=== PATIENT | male | born 1990 | race African-American/Black ===

== ENCOUNTER 2020-11-10 17:59 | Observation (INO) ==
[2020-11-10] MEDS ORDERED: ONDANSETRON 4 MG/2 ML VIAL IV STA (20:08)
[2020-11-10] MEDS ORDERED: KETOROLAC 30 MG/1 ML VIAL IV STA (20:08)
[2020-11-10] MEDS ORDERED: PANTOPRAZOLE 40 MG VIAL IV STA (20:08)
[2020-11-10] MEDS ORDERED: SODIUM CHLORIDE 0.9% 1,000 ML IV STA (20:08)
[2020-11-10 20:54] LABS: Basophils % 0.2 % (0.0-0.8); Eosinophils # 0.1 10*3/uL (0.0-0.87); Eosinophils % 0.8 % (0.00-10.9); Hematocrit 43.5 VOL% (42.0-52.0); Hemoglobin 13.7 GM/DL (14.0-18.0); Immature Granulocytes % 0.3 %; Immature Granulocytes Absolute 0.02 #; Lymphocytes # 1.1 10*3/uL (1.4-4.0); Lymphocytes % 16.1 % (21.2-54.2); Mean Corpuscular HGB Conc 31.5 GM/DL (32-36); Mean Corpuscular Volume 81.2 FL (87-102); Mean Platelet Volume 10.4 FL (9.6-12.0); Neutrophils % 75.6 % (38.7-73.9); Platelet Count 275 T/CUMM (130-400); Red Blood Count 5.36 MC/CUMM (3.8-5.5); Red Cell Distribution Width 13.2 % (9.3-17.3); White Blood Count 6.6 T/CUMM (4-12)
[2020-11-10 20:55] LABS: Bilirubin,Urine Negative (Negative); Blood, Urine Negative (Negative); Glucose,Urine (UA) Negative (Negative); Ketones,Urine Negative (Negative); Mucus,Urine Occasional /LPF (Occasional); Nitrite,Urine Negative (Negative); Protein,Urine 30 MG/DL; RBC,Urine 3 /HPF (0-4); Squamous Epithelial Cell,Urine Occasional /HPF (0-10); Urine Appearance CLEAR (Clear); Urine Color Yellow (Yellow); Urine Specific Gravity 1.027 (1.001-1.035); Urine Urobilinogen < 2.0 EU/DL (0.2-1.0); WBC,Urine 1 /HPF (0-6)
[2020-11-10 21:11] LABS: Bilirubin,Total 0.9 MG/DL (0.2-1.0); Calcium 9.5 MG/DL (8.5-10.1); Osmolality,Calculated 265.2 MOS/KG (273-304); Potassium 3.8 MMOL/L (3.5-5.1); Total Protein 8.2 G/DL (6.4-8.3)
[2020-11-11] MEDS ORDERED: HYDROmorphone 2 MG/1 ML VIAL IV PRN ×3 (02:31→14:43)
[2020-11-11] MEDS ORDERED: ONDANSETRON 4 MG/2 ML VIAL IV PRN ×2 (02:31→14:43)
[2020-11-11] MEDS ORDERED: ACETAMINOPHEN 325 MG TABLET PO PRN (02:31)
[2020-11-11] MEDS: SODIUM CHLORIDE 0.9% 1,000 ML IV SCH (03:56)
[2020-11-11 06:27] LABS: Basophils # 0.1 10*3/uL (0.0-0.2); Basophils % 0.8 % (0.0-0.8); Eosinophils # 0.1 10*3/uL (0.0-0.87); Eosinophils % 2.2 % (0.00-10.9); Hematocrit 40.3 VOL% (42.0-52.0); Hemoglobin 12.8 GM/DL (14.0-18.0); Immature Granulocytes % 0.2 %; Immature Granulocytes Absolute 0.01 #; Lymphocytes # 1.8 10*3/uL (1.4-4.0); Lymphocytes % 29.1 % (21.2-54.2); Mean Corpuscular HGB Conc 31.8 GM/DL (32-36); Mean Corpuscular Volume 81.4 FL (87-102); Mean Platelet Volume 10.8 FL (9.6-12.0); Monocytes % 10.1 % (1.7-12.7); Neutrophils % 57.6 % (38.7-73.9); Platelet Count 235 T/CUMM (130-400); Red Blood Count 4.95 MC/CUMM (3.8-5.5); Red Cell Distribution Width 13.4 % (9.3-17.3)
[2020-11-11 06:57] LABS: Albumin 3.3 G/DL (3.4-5.0); Calcium 8.4 MG/DL (8.5-10.1); Osmolality,Calculated 277.3 MOS/KG (273-304); Potassium 3.9 MMOL/L (3.5-5.1); Total Protein 7.1 G/DL (6.4-8.3)
[2020-11-11] MEDS: PANTOPRAZOLE 40 MG VIAL IV SCH (11:30)
[2020-11-11] MEDS ORDERED: cefOXitin 2,000 MG in SYRINGE 1 EACH IV ONE (11:51)
[2020-11-11] MEDS ORDERED: TISSUE ADHESIVE 1 EACH APPLICATOR TOP ONE (12:03)
[2020-11-11] MEDS ORDERED: LIDOCAINE 1%/EPI INJ 20 ML VIAL ONE (12:03)
[2020-11-11] MEDS ORDERED: BUPIVACAINE MPF 0.25% 30 ML VIAL ONE (12:03)
[2020-11-11] MEDS ORDERED: SUCCINYLCHOLINE 200 MG/10 ML VIAL ONE (12:43)
[2020-11-11] MEDS ORDERED: SEVOFLURANE 1 UNIT/15 MINUTE INH ONE ×3 (12:43→14:22)
[2020-11-11] MEDS ORDERED: fentaNYL 100 MCG/2 ML VIAL ONE ×2 (12:43→13:42)
[2020-11-11] MEDS ORDERED: LIDOCAINE 2% 5 ML VIAL ONE (12:43)
[2020-11-11] MEDS ORDERED: ROCURONIUM 50 MG/5 ML VIAL IV ONE (12:43)
[2020-11-11] MEDS ORDERED: propofoL 200 MG/20 ML VIAL IV ONE ×2 (12:43→12:45)
[2020-11-11] MEDS ORDERED: MIDAZOLAM 2 MG/2 ML VIAL ONE ×2 (12:44→12:49)
[2020-11-11] MEDS ORDERED: ePHEDrine 50 MG/ML VIAL ONE (13:02)
[2020-11-11] MEDS ORDERED: DEXAMETHASONE 4 MG/1 ML VIAL ONE (13:41)
[2020-11-11] MEDS ORDERED: ONDANSETRON 4 MG/2 ML VIAL ONE (13:41)
[2020-11-11] MEDS ORDERED: LACTATED RINGERS 1,000 ML IV ONE (13:42)
[2020-11-11] MEDS ORDERED: PHENYLEPHRINE 1 MG/10 ML SYRINGE IV ONE (13:42)
[2020-11-11] MEDS ORDERED: GLYCOPYRROLATE 0.4 MG/2 ML VIAL ONE (14:27)
[2020-11-11] MEDS ORDERED: NEOSTIGMINE 10 MG/10 ML VIAL ONE (14:27)
[2020-11-11] MEDS ORDERED: ALBUTEROL/IPRATROPIUM 3 ML NEB RESP TX PRN (14:43)
[2020-11-11] MEDS ORDERED: BISACODYL 5 MG TABLET PO PRN (14:43)
[2020-11-11] MEDS: cefOXitin 2,000 MG in SYRINGE 1 EACH IV SCH (20:02)
[2020-11-11] MEDS ORDERED: ENOXAPARIN 40 MG/0.4 ML SYRINGE SUBCUT SCH (21:00)
[2020-11-12] MEDS: SODIUM CHLORIDE 0.9% 1,000 ML IV SCH ×3 (02:29→09:57)
[2020-11-12] MEDS: cefOXitin 2,000 MG in SYRINGE 1 EACH IV SCH ×2 (02:32→10:08)
[2020-11-12 04:39] VITALS: BP 119/66
[2020-11-12 04:58] LABS: Basophils % 0.1 % (0.0-0.8); Hematocrit 41.4 VOL% (42.0-52.0); Hemoglobin 12.5 GM/DL (14.0-18.0); Immature Granulocytes % 0.3 %; Immature Granulocytes Absolute 0.02 #; Lymphocytes % 13.8 % (21.2-54.2); Mean Corpuscular HGB Conc 30.2 GM/DL (32-36); Mean Platelet Volume 10.7 FL (9.6-12.0); Monocytes % 7.9 % (1.7-12.7); Neutrophils % 77.9 % (38.7-73.9); Platelet Count 264 T/CUMM (130-400); Red Blood Count 4.93 MC/CUMM (3.8-5.5); Red Cell Distribution Width 13.5 % (9.3-17.3); White Blood Count 7.1 T/CUMM (4-12)
[2020-11-12 05:21] LABS: Albumin 3.1 G/DL (3.4-5.0); Bilirubin,Total 0.9 MG/DL (0.2-1.0); Calcium 8.2 MG/DL (8.5-10.1); Osmolality,Calculated 279.3 MOS/KG (273-304); Potassium 4.4 MMOL/L (3.5-5.1); Total Protein 7.1 G/DL (6.4-8.3)
[2020-11-12] MEDS: PANTOPRAZOLE 40 MG VIAL IV SCH (10:38)
== END 2020-11-12 13:30 | disposition home or self-care (01) ==
LOC: N.ED 17:59 → N.EDINP 17:59 → N.4E 11-11 02:25
PROVIDERS: ADMIT Surgery; ATTEND Surgery
PROC: LAPCHOL (2020-11-11 12:42)